=== PATIENT | male | born 2000 | race Caucasian/White ===

== ENCOUNTER 2021-01-12 09:56 | Emergency (ER) | payer OTHER ==
[~2021-01-12] VITALS: Ht 170.2 cm; Wt 57.6 kg
[~2021-01-12 09:56] MED LIST: OSEL75CA PO; TRISPEC PSE LI118 ML PO; ZANTAC150 MG PO; ZOFRAN4 MG PO
[2021-01-12] MEDS ORDERED: PEPCID AC20 MG PO (16:56)
== END 2021-01-12 18:01 | disposition home or self-care (01) ==
LOC: EMR PED 09:56
DX: K29.00 Acute gastritis without bleeding (principal); K52.89 Other specified noninfective gastroenteritis and colitis; R05 Cough; R50.9 Fever, unspecified; R09.81 Nasal congestion; R11.11 Vomiting without nausea; Z03.818 Encounter for observation for suspected exposure to other biological agents ruled out

== ENCOUNTER 2021-01-15 08:45 | Emergency (ER) | payer OTHER ==
[~2021-01-15] VITALS: Ht 170.2 cm; Wt 59.4 kg
[~2021-01-15 08:45] MED LIST changes: +PEPCID AC20 MG PO
== END 2021-01-15 13:52 | disposition home or self-care (01) ==
LOC: EMR PED 08:45
DX: K59.09 Other constipation (principal); R10.84 Generalized abdominal pain

== ENCOUNTER 2021-03-05 17:32 | Emergency (ER) | payer OTHER ==
[~2021-03-05] VITALS: Ht 170.2 cm; Wt 59.0 kg
[2021-03-05] MEDS ORDERED: DICY20TA PO (20:56)
== END 2021-03-05 21:00 | disposition home or self-care (01) ==
LOC: EMR PED 17:32
DX: K82.4 Cholesterolosis of gallbladder (principal); Z11.52 Encounter for screening for COVID-19